=== PATIENT | male | born 1960 | race Caucasian/White ===

== ENCOUNTER → 2020-03-07 | Outpatient (CLI) | payer OTHER | LOC: CAT 10:47 | PROVIDERS: ATTEND Internal Medicine Cardiovascular Disease | DX: Z13.6 Encounter for screening for cardiovascular disorders (principal); I25.10 Atherosclerotic heart disease of native coronary artery without angina pectoris; E78.00 Pure hypercholesterolemia, unspecified ==

== ENCOUNTER → 2020-05-06 | Outpatient (CLI) | payer BC, OTHER | LOC: SJCVCIMAG 08:56 | PROVIDERS: ATTEND Internal Medicine Cardiovascular Disease | DX: I42.8 Other cardiomyopathies (principal); R53.83 Other fatigue; R06.00 Dyspnea, unspecified; M25.569 Pain in unspecified knee; I10 Essential (primary) hypertension; E78.1 Pure hyperglyceridemia ==